=== PATIENT | female | born 1995 | race Asian ===

== ENCOUNTER → 2021-02-28 10:35 | Outpatient (CLI) | payer OTHER, SELFPAY ==
--- NOTE | 2021-02-28 10:37 | DI.US.S_ITS ---
PROCEDURE: US OB <= 14 WEEKS FETUS INDICATIONS: INITIAL VIABILITY DATING OUTSIDE/PRIOR DATING DATA: Last menstrual period (LMP): 12/28/2020 LMP-based estimated date of delivery (CORBY): 10/04/2021. First dating scan (date and location): 03/09/2021. Estimated date of delivery (CORBY) from first dating scan: 10/15/2021. TECHNIQUE: Real-time scanning was performed of the fetus and maternal pelvic organs, with image documentation. Endovaginal scanning was also performed to better visualize the fetus and maternal ovaries. COMPARISON: None. FINDINGS: Embryo: [place]-rump length measures 1.2 cm corresponding to 7 weeks 2 days. Heart rate: Small perigestational sac bleed site measuring up to 1.8 cm Measurement variability in dating: +/- 4 weeks by LMP, +/- 7 days by mean sac diameter (use before 6 weeks gestation if crown-rump length not able to be measured), +/- 5 days by crown-rump length (up to 8 weeks 6 days gestation), +/- 7 days by crown-rump length (up to 13 weeks 6 days gestation). Maternal organs: Ovaries within normal limits, with right corpus luteal cyst. . IMPRESSION: 7 week 2 day single living IUP. Dictated by: Joel Howard [facility] Interpreted: Cindy Gayle MD on 02/28/2021 at 12:06 Transcribed by: CARLOZ on 02/28/2021 at 12:07 Approved by: Cindy Gayle M.D. on 02/28/2021 at 16:12
[2021-02-28 12:33] LABS: Add Manual Diff / Slide Review NO; Basophils Absolute Auto 100 /uL (0-100); Basophils Percent Auto 0.6 % (0-2); Eosinophils Absolute Auto 200 /uL (0-450); Eosinophils Percent Auto 1.3 % (2-4); Hematocrit 40.7 % (36-46); Hemoglobin 13.6 g/dL (12.0-16.0); Lymphocytes Absolute Auto 2400 /uL (1100-4500); Lymphocytes Percent Auto 20.2 % (25-40); Mean Corpuscular HGB Conc 33.3 % (30-36); Mean Corpuscular Hemoglobin 29.9 PG (26-34); Mean Corpuscular Volume 89.7 fL (80-100); Monocytes Absolute Auto 800 /uL (0-900); Monocytes Percent Auto 6.9 % (3-14); Neutrophils Absolute Auto 8300 /uL (1500-7000); Platelet Count 234 X10^3/uL (150-400); Red Blood Cell Count 4.54 X10^6/uL (4.0-5.2); Red Cell Distribution Width 13.5 % (11.6-14.8); White Blood Cell Count 11.7 X10^3/uL (4.5-11.0)
[2021-02-28 12:37] LABS: Appearance Urine UA CLEAR; Bilirubin Urine UA NEGATIVE (NEGATIVE); Color Urine UA YELLOW; Glucose Urine UA NEGATIVE (Negative); Ketones Urine UA NEGATIVE (NEGATIVE); Leukocyte Esterase Urine UA NEGATIVE (NEGATIVE); Nitrite Urine UA NEGATIVE (Negative); Occult Blood Urine UA NEGATIVE (Negative); Protein Urine UA NEGATIVE (Negative); Urobilinogen Urine UA 0.2 E.U./dL (0.2)
[2021-02-28 13:23] LABS: Hepatitis B Surface Antigen NEGATIVE s/c (NEGATIVE); Rubella Antibody IgG 32.9 IU/mL (>15)
[2021-02-28 13:40] LABS: HIV 1 & 2 Ab/Ag 4th Gen Combo NEGATIVE (NEGATIVE); Hep C Virus Ab w/Reflex Quant NEGATIVE s/c (NEGATIVE)
[2021-03-01 07:08] LABS: Varicella IgG Antibody <135 index (Immune >165)
[2021-03-02 06:54] LABS: RPR Screen Non Reactive (Non Reactive)
== END ==
PROVIDERS: Referring Provider Obstetrics & Gynecology; Visit Provider Obstetrics & Gynecology
DX: Z34.01 Encounter for supervision of normal first pregnancy, first trimester (principal); Z3A.01 Less than 8 weeks gestation of pregnancy
CPT/HCPCS: 36415; 76801; 76817; 80055; 81003; 86787; 86803; 86850; 86900; 86901; 87086; 87389

== ENCOUNTER → 2021-05-04 09:02 | Outpatient (CLI) | payer OTHER, SELFPAY ==
[2021-05-10 12:41] LABS: AFP, Serum 30.8 ng/mL (.); Calc Gestational Age EDD (.); Estriol, Free 1.79 ng/mL (.); Inhibin A, Dimeric 155.97 pg/mL (.); Inhibin A, MoM 1.05 (.); Maternal Ethnicity Other (.); Maternal Weight 164 lbs (.); Number of Fetuses No (.); OSBR Risk 1 IN 10000 (.); Results Report (.); Test Results *Screen Negative* (.); hCG, Serum 30702 mIU/mL (.)
== END ==
PROVIDERS: Referring Provider Obstetrics & Gynecology; Visit Provider Obstetrics & Gynecology
DX: Z34.02 Encounter for supervision of normal first pregnancy, second trimester (principal); Z3A.16 16 weeks gestation of pregnancy
CPT/HCPCS: 36415; 82105; 82677; 84702; 86336

== ENCOUNTER → 2021-05-31 09:25 | Outpatient (CLI) | payer OTHER, SELFPAY ==
--- NOTE | 2021-05-31 09:25 | DI.US.S_ITS ---
PROCEDURE: US OB >= 14 WEEKS FETUS INDICATIONS: ANATOMY OUTSIDE/PRIOR DATING DATA: Last menstrual period (LMP): 12/28/2020 LMP-based estimated date of delivery (CORBY): 10/04/2021 First dating scan (date and location): 02/28/2021 Estimated date of delivery (CORBY) from first dating scan: 10/15/2021. TECHNIQUE: Real-time scanning was performed of the fetus, with image documentation and biometric measurements. COMPARISON: [facility], OB <= 14 WEEKS FETUS, 02/28/2021, 11:04. FINDINGS: General: A single living intrauterine gestation is present. Presentation: Breech Placenta: Placental position is anterior, without previa. Amniotic fluid index: 15.8 cm, normal range is 5-24 cm. Single deepest vertical pocket is 4.8 cm. heart rate: 144 beats per minute. Maternal cervical canal: 4.9 cm long. Normal lower limit is 2.5 cm. biometrics: Biparietal diameter: 4.8 cm, 20 weeks, 4 days Head circumference: 18.1 cm, 20 weeks, 4 days Abdominal circumference: 15.1 cm, 20 weeks, 2 days Femur length: 3.4 cm, 20 weeks, 5 days Clinically estimated gestational age: 20 weeks, 3 days Composite gestational age from present scan: 20 weeks, 4 days Estimated weight and percentile: 359 grams, 50 percent. Anatomic survey: Neuro: Ventricles are non-dilated at less than 10 mm. Cisterna magna is normal at 3-11 mm. Cerebellum is normal in size and morphology. Nuchal skin fold: Normal at less than 6 mm between 14-21 weeks gestational age. Face: Nose and lips, facial profile are suboptimally evaluated due to lie. There is questionable cleft upper lip. Spine: Not well seen. Heart: 4-chambered heart is present, with normal ventricular outflow tracts. Diaphragm: Diaphragm is intact. Stomach: Left-sided stomach is present. Kidneys: Not well seen.. Cord: 3-vessel cord has orthotopic insertion. Bladder: Normal in size. Extremities: Left foot is not well seen. Rest of the extremities are within normal limits. IMPRESSION: 1. Single live intrauterine with fetus in breech presentation. heart rate is 144 beats per minute. Normal amount of amniotic fluid. Normal growth. Estimated weight is at 50 percent. 2. facial profile is not well seen. Questionable cleft upper lip is noted, suggest follow-up ultrasound. 3. Left foot, spine and bilateral kidneys are not well seen on this study due to lie. 4. Rest of the anatomic survey is within normal limits. We strive to produce accurate, complete, and clear reports of imaging services. To assist us in improving patient care, this report was composed using standard report templates and voice recognition software. Therefore, it may contain abnormal punctuation, insertions and/or omissions. Occasional wrong-word or sound-alike substitutions may occur. Though we review the report and make efforts to correct it, we do recommend that the report be read carefully in proper context to recognize any text inaccuracies. Dictated by: Mao Watts M.D. on 05/31/2021 at 13:01 Approved by: Mao Watts M.D. on 05/31/2021 at 13:05
== END ==
PROVIDERS: Referring Provider Obstetrics & Gynecology; Visit Provider Obstetrics & Gynecology
DX: Z34.02 Encounter for supervision of normal first pregnancy, second trimester (principal); Z3A.20 20 weeks gestation of pregnancy
CPT/HCPCS: 76811

== ENCOUNTER → 2021-07-26 10:07 | Outpatient (CLI) | payer OTHER, SELFPAY ==
[2021-07-26 14:43] LABS: Hematocrit 37.9 % (36-46); Hemoglobin 12.8 g/dL (12.0-16.0)
[2021-07-26 14:48] LABS: GTT (PREG) 1 Hour PP 50gm Dose 130 mg/dL (76-139)
== END ==
PROVIDERS: Referring Provider Obstetrics & Gynecology; Visit Provider Obstetrics & Gynecology
DX: Z34.02 Encounter for supervision of normal first pregnancy, second trimester (principal); Z3A.24 24 weeks gestation of pregnancy
CPT/HCPCS: 36415; 82950; 85014; 85018

== ENCOUNTER → 2021-09-12 14:02 | Outpatient (CLI) | payer OTHER, SELFPAY ==
[2021-09-13 10:10] LABS: Strep Grp B PCR POS for Grp B Strep
== END ==
PROVIDERS: Visit Provider Obstetrics & Gynecology
DX: Z36.85 Encounter for antenatal screening for Streptococcus B (principal); Z3A.35 35 weeks gestation of pregnancy
CPT/HCPCS: 87653

== ENCOUNTER 2021-10-09 18:03 | Inpatient (IN) | payer OTHER, SELFPAY ==
[2021-10-09 18:44] VITALS: BP 127/79
[2021-10-09 19:18] LABS: Add Manual Diff / Slide Review NO; Basophils Absolute Auto 0 /uL (0-100); Basophils Percent Auto 0.6 % (0-2); Eosinophils Absolute Auto 100 /uL (0-450); Eosinophils Percent Auto 0.9 % (2-4); Hematocrit 37.4 % (36-46); Hemoglobin 13.2 g/dL (12.0-16.0); Lymphocytes Absolute Auto 2100 /uL (1100-4500); Lymphocytes Percent Auto 27.9 % (25-40); Mean Corpuscular HGB Conc 35.3 % (30-36); Mean Corpuscular Hemoglobin 31.4 PG (26-34); Mean Corpuscular Volume 88.9 fL (80-100); Monocytes Absolute Auto 600 /uL (0-900); Monocytes Percent Auto 8.4 % (3-14); Neutrophils Absolute Auto 4700 /uL (1500-7000); Neutrophils Percent Auto 62.2 % (50-75); Platelet Count 207 X10^3/uL (150-400); Red Blood Cell Count 4.21 X10^6/uL (4.0-5.2); Red Cell Distribution Width 13.7 % (11.6-14.8); White Blood Cell Count 7.5 X10^3/uL (4.5-11.0)
[2021-10-09 19:31] LABS: COVID19 -Nasal RAPID Negative (Negative)
[2021-10-09] MEDS: miSOPROStoL 25 MCG TABLET 50 MCG PO (19:55)
[2021-10-10] MEDS: miSOPROStoL 25 MCG TABLET 50 MCG PO (01:27)
[2021-10-10] MEDS: LACTATED RINGERS 1,000 ML 100 ML IV ×2 (06:41→14:57)
[2021-10-10] MEDS: PENICILLIN G POTASSIUM 5,000,000 UNIT in DEXTROSE 5% IN WATER 250 ML 250 UNIT IV (06:42)
[2021-10-10] MEDS: FENT 2MCG/ML BUPIV 0.125% EPI 200 MCG/100 ML PLAST..BAG 10 MCG EPIDURAL ×2 (07:46→14:46)
--- NOTE | 2021-10-10 07:54 | P.HPOB_ITS ---
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 PNC uneventful. GBS + Indications Indication for induction OB: other (Possible cleft lip/palate) History of Present care: good care Dating criteria: LMP confirmed by 1st trimester US Ultrasounds: normal 1st trimester US and normal mid trimester US Obstetrical complications: none Medical complications: none Preadmission Labs Blood type: O (+) positive -: Antibody screen: negative, GBS status: positive, HBsAG: negative, HIV: negative and RPR/VDLR: negative -: Chlamydia screen: not detected and Gonorrhea screen: not detected -: Rubella: immune and Varicella: not immune HCT: 37.4 HCAB: negative PAP: Normal Quad screen: Normal Fasting blood glucose: 130 Prior (ies) History: N/A Evaluation Evaluation Baseline heart rate: 130 Variability: Moderate (11-25) monitor accelerations: Present Monitor Decelerations: Absent Contraction Frequency (minutes): 3 Uterine Contraction Intensity: Moderate Category of Tracing: Reactive Status: Category l Dilation (cm): 4 Effacement (%): 80 Dilation: 3-4 cm Effacement: >/=80% station: -2 Position of cervix: anterior Consistency: medium Trinh score: 9 PFSH Medical History (Updated 10/04/21 @ 10:26 by Parth Soto MD) Frequent nosebleeds (~2009) Surgical History (Updated 03/01/21 @ 10:22 by Crissy Olson RN) History of removal of skin mole [place] teeth extracted (~2011) Family History (Updated 03/01/21 @ 10:27 by Crissy Olson RN) Mother Diabetes mellitus Father No problems noted. Grandmother Diabetes mellitus Hypertension Grandfather Family history unknown Grandmother No problems noted. Grandfather No problems noted. 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.) special isidro needs: No seatbelt use: always do you feel safe at home: Yes Smoking Status: Former smoker quit status: has quit before second hand exposure: No alcohol intake: former substance use type: does not use during the past year weight has: remained stable well-balanced diet: daily or most days daily servings fruits/ve or more times/day caffeine: No Type(s) of exercise: walking, weight lifting, running and normal ROM and activity frequency: 5-6 times per week duration: 45-60 minutes/day Meds Home Medications and Allergies Home Medications Medication Instructions Recorded Confirmed Type cholecalciferol (vitamin D3) 25 25 mcg PO DAILY 03/01/21 10/09/21 History mcg (1,000 unit) capsule doxylamine succinate 25 mg tablet 25 mg PO BEDTIME PRN 03/01/21 10/09/21 History (Unisom (doxylamine)) prenat.vits,alba,bog-gsec-rhgty 1 tab PO DAILY 03/01/21 10/09/21 History pyridoxine (vitamin B6) 50 mg 50 mg PO DAILY 03/01/21 10/09/21 History tablet ondansetron 4 mg disintegrating 4 mg PO Q8H PRN #20 tab 04/06/21 10/09/21 Rx tablet Allergies Allergy/AdvReac Type Severity Reaction Status Date / Time No Known Drug Allergies Allergy Verified 10/04/21 09:52 OB Exam [facility] Head: normal to inspection, normocephalic and atraumatic Eyes General: appearance normal, both eyes and all related structures Resp Effort & Inspection: normal respiratory effort and able to speak in complete sentences Auscultation: clear to auscultation bilaterally Cardio Rate: regular rate Rhythm: regular rhythm Heart Sounds: S1 normal, S2 normal and no murmurs Extremities Lower extremity: Yes normal to inspection GI Inspection: normal to inspection Palpation: Yes soft and Yes no hepatosplenomegaly Uterus Location (Fundal Height): 37 Presentation: vertex Estimated Weight (lbs): 7 Objective Labs Result Diagrams: 10/09/21 18:20 Labs: Laboratory Results - last 24 hr 10/09/21 10/09/2110/09/22 18:20 18:20 18:20 WBC 7.5 RBC 4.21 Hgb 13.2 Hct 37.4 MCV 88.9 MCH 31.4 MCHC 35.3 RDW 13.7 Plt Count 207 Neut % (Auto) 62.2 Lymph % (Auto) 27.9 [place] % (Auto) 8.4 Eos % (Auto) 0.9 L Baso % (Auto) 0.6 Neut # (Auto) 4700 Lymph # (Auto) 2100 [place] # (Auto) 600 Eos # (Auto) 100 Baso # (Auto) 0 SARS-CoV-2 (PCR) Negative Blood Type O Positive Antibody Screen Negative Assessment and Plan Assessment and Plan Assessment and Plan narrative: ASSESSMENT 1. Intrauterine , 39+2 weeks EGA, vertex 2. Possible cleft lip/palate 3. GBS positive status PLAN 1. Admit for ripening/induction 2. GBS prophylaxis 3. See orders Time Spent with Patient Total time spent with greater than 50% in coordination of care (as documented) at patient's floor/unit and/or counseling patient:: less than 15 minutes
[2021-10-10] MEDS: ACETAMINOPHEN 325 MG TABLET 975 MG PO (09:00)
[2021-10-10] MEDS: OXYTOCIN PREMIX 30 UNIT/500 ML PLAST..BAG IV (10:01)
[2021-10-10] MEDS: PENICILLIN G POTASSIUM 3,000,000 UNIT/50 ML FROZ.PIGGY 100 UNIT IV ×2 (11:42→15:28)
--- NOTE | 2021-10-10 17:34 | PM.OBPRVD ---
Events: Other (Suspected cleft lip/palate) Labor & Delivery Delivery date: 10/10/21 Cervical ripening method: per misoprostal protocol Induction method: per pitocin protocol Delivery monitor: external FHT and external uterine Route of delivery: vacuum extraction Indication for instrumentation: nonreassuring FHR tracing ( tachycardia) L&D Laceration Description: Perineal - 2nd Degree and Vaginal - 1st Degree (Right sided) Delivery repair: chromic Estimated blood loss (mL): 300 Quantitative Blood Loss: 300 Complications: With judicious use of Pitocin augmentation, the patient progressed to the 2nd stage of labor and pushed well. The patient and the baby developed tachycardia simultaneously with heart rate persistently in the 180-190 range. Due to persistent tachycardia decision was made to expedite delivery with vacuum extraction and therefore a Kiwi Omni-cup was applied to the vertex at +2 station in the right occiput posterior position. The vertex was brought to the perineum with 4 pulls with no pop offs, release of suction between pulls and pressures never exceeding 550 mmHg. The infant then delivered spontaneously over an intact perineum in the right occiput posterior position and no difficulty delivering the shoulders was encountered. Skin to skin contact was initiated immediately and the was vigorous. After 90 seconds, the cord was clamped and cut with the cord noted to to have 3 vessels and no entanglement with the . Placenta was easily delivered with gentle cord traction and Pitocin initiated intravenously. The placenta was inspected and found to be intact. Cord blood was obtained in routine not want studies. The perineum was then inspected and found to have sustained a second degree midline laceration with a superficial right labial laceration. The lacerations were closed with 2-0 chromic in the usual manner and at the end of the repair all skin edges were well reapproximated. The procedure was then terminated with the infant and mother doing well. QBL 300 cc. Complications experienced none. Baby 1: gender: Female Presentation: vertex Position: Right Occiput Posterior Placenta delivery description: Spontaneous Cord Vessel Description: 3 Vessels score (1 min): 8 score (5 min): 9 weight: 6 lb 12.115 oz Plan for aftercare: Routine care
[2021-10-10] MEDS: DERMOPLAST SPRAY 20% 60 ML 1 SPRAY TOP (22:05)
[2021-10-10] MEDS: ACETAMINOPHEN 325 MG TABLET 650 MG PO (22:06)
[2021-10-10] MEDS: IBUPROFEN 600 MG TABLET PO (22:06)
[2021-10-11] MEDS: ACETAMINOPHEN 325 MG TABLET 650 MG PO ×3 (04:45→23:40)
[2021-10-11] MEDS: IBUPROFEN 600 MG TABLET PO ×3 (04:45→23:40)
[2021-10-11 06:11] LABS: Add Manual Diff / Slide Review NO; Basophils Absolute Auto 0 /uL (0-100); Basophils Percent Auto 0.2 % (0-2); Eosinophils Absolute Auto 100 /uL (0-450); Eosinophils Percent Auto 0.4 % (2-4); Hematocrit 33.7 % (36-46); Hemoglobin 11.3 g/dL (12.0-16.0); Lymphocytes Absolute Auto 2400 /uL (1100-4500); Lymphocytes Percent Auto 18.6 % (25-40); Mean Corpuscular HGB Conc 33.5 % (30-36); Mean Corpuscular Hemoglobin 30.3 PG (26-34); Mean Corpuscular Volume 90.4 fL (80-100); Monocytes Absolute Auto 700 /uL (0-900); Monocytes Percent Auto 5.4 % (3-14); Neutrophils Absolute Auto 9700 /uL (1500-7000); Neutrophils Percent Auto 75.4 % (50-75); Platelet Count 165 X10^3/uL (150-400); Red Blood Cell Count 3.72 X10^6/uL (4.0-5.2); Red Cell Distribution Width 13.9 % (11.6-14.8); White Blood Cell Count 12.9 X10^3/uL (4.5-11.0)
[2021-10-11] MEDS: DOCUSATE 100 MG CAPSULE PO (10:49)
[2021-10-11 10:50] VITALS: TEMP 36.4
--- NOTE | 2021-10-11 13:06 | PM.OBDS.1 ---
Discharge Providers Provider Date of admission: 10/09/21 18:03 Discharge Date: 10/11/21 Primary care physician: Doctor Lilia MD Consults: 10/09/21 19:06 Consult to Anesthesiology Urgent Comment: Consulting Provider: Parth Soto Reason for consultation: Placement of BRANDIN in labor 10/11/21 17:32 Consult to Computer Help Desk Representative Routine Comment: Discharge provider: Parth Soto MD Summary Hospital Course Date Patient Seen: 10/11/21 Time Patient Seen: 13:06 Diagnoses: Intrauterine , 39+2 weeks EGA, delivered GBS positive status Hospital Course: Gin was admitted for cervical ripening on the evening of 10/09/2021 at 39+ 1 weeks due to suspected cleft lip/palate seen on 20 week anatomy scan at a time when 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 She underwent cervical ripening with oral Cytotec and on the morning of 10/10/2021 Pitocin augmentation was initiated along with IV penicillin for GBS prophylaxis, and she progressed well through labor with an epidural in place. On the afternoon of 10/10/2021 she delivered vaginally a viable female requiring vacuum assist for descent to the perineum due to persistent tachycardia, and during that delivery sustained a second-degree perineal laceration and first-degree right labial laceration which were repaired in the usual manner. Following delivery the patient has done extremely well with prompt return of bowel and bladder function, she is ambulating independently, is tolerating regular diet, and her pain is well controlled with oral medications. She will be discharged at this time to home after being counseled regarding precautionary symptoms, limitations activity, medications, and plans for follow-up which will be in 6 weeks. Medications at discharge will include ibuprofen 600 mg p.o. q.6 hours as needed pain, and [id number]-[id number]-iuxhrso stool softener b.i.d. as needed constipation. Peripartum Data Infant Delivery Method: Natural Vaginal Laceration Description: Perineal - 2nd Degree and Labial (1st degree, right) Episiotomy description: None Procedures: Vaginal OB Delivery, vacuum assited Continuous lumbar epidural complications: none [place] 1: Gender: Female Disposition of : home Status at Discharge Cognitive/behavioral status at discharge: oriented Functional status at discharge: independent ambulation Overall status at discharge: patient is progressing back to baseline Time Spent with Patient Time attestation: Total time spent providing and/or coordinating discharge services: Time spent: Less than 30 minutes Objective Labs Result Diagrams: 10/11/21 05:35 Labs: Laboratory Results - last 24 hr 10/11/21 05:35 WBC 12.9 H D RBC 3.72 L Hgb 11.3 L Hct 33.7 L MCV 90.4 MCH 30.3 MCHC 33.5 RDW 13.9 Plt Count 165 Neut % (Auto) 75.4 H Lymph % (Auto) 18.6 L [place] % (Auto) 5.4 Eos % (Auto) 0.4 L Baso % (Auto) 0.2 Neut # (Auto) 9700 H Lymph # (Auto) 2400 [place] # (Auto) 700 Eos # (Auto) 100 Baso # (Auto) 0 Exam Vital Signs (past 8 hours): - 10/11/21 10:50 Temperature 97.6 F Const General: cooperative and comfortable Nutritional Appearance: average body habitus Orientation: alert and oriented x3 HENMT Head: normal to inspection, atraumatic and abrasion Ears: hearing grossly normal bilaterally Face and sinus: face symmetric Eyes General: appearance normal, both eyes and all related structures Conjunctivae: conjunctivae normal Sclera: sclerae normal EOM: EOM intact bilaterally Neck Neck: normal visual inspection Resp Effort & Inspection: normal respiratory effort and able to speak in complete sentences Auscultation: clear to auscultation bilaterally Cardio Rate: regular rate Rhythm: regular rhythm Heart Sounds: S1 normal, S2 normal and no murmurs GI Inspection: normal to inspection Palpation: soft, no hepatosplenomegaly, mass (Firm, NT fundus, U-6) and tender (Mild, diffuse ) External Female Exam: laceration (Intact with early healing) and other (Minimal lochia) Extrem General: no calf tenderness Psych Appearance: grossly normal Mental Status: mental status grossly normal Speech and Movement: speech and movement normal Mood: congruent mood Affect: normal affect Attitude: cooperative Thought Process: normal Thought Content: normal Judgment: judgment good Discharge Plan Discharge Plan Patient Disposition: Home Provider Discharge Comment: Please review the written instructions you received when you were discharged from the hospital. Your follow-up appointment will be scheduled for 6 weeks after your delivery and I look forward to seeing you then. If in the meanwhile however you have any problems, issues, or concerns, please contact me either through the office phone number or via the patient portal. Nursing Discharge Comment: Discharge teaching done overnight on pi/senior research associate 10/11-10/12. Packet printed and additional discharge teaching done at 1010. Pt denies any additional questions. Official discharge time was 0100 per pi/senior research associate. Discharge orders & Medications Prescriptions: New ibuprofen 600 mg Tablet 600 mg PO Q6HR PRN (Reason: Fever/Mild Pain (1-3)) Qty: 60 2RF Continued prenat.vits,alba,lvv-ojgc-czvms Tablet 1 tab PO DAILY 0RF cholecalciferol (vitamin D3) 25 mcg (1,000 unit) capsule 25 mcg PO DAILY 0RF pyridoxine (vitamin B6) 50 mg tablet 50 mg PO DAILY 0RF Unisom (doxylamine) 25 mg tablet 25 mg PO BEDTIME PRN (Reason: Sleep) 0RF ondansetron 4 mg tablet,disintegrating 4 mg PO Q8H PRN (Reason: nausea and vomiting) Qty: 20 6RF Medication counseling provided by Pharmacist: No Follow up/Referrals: Doctor Rodrigues MD [Primary Care Provider] - 6 Weeks (Please follow up with Dr. Soto on November 23 @ 9:15am. ) Discharge Health Status Multidrug resistant organism: No MDRO Diet/Activity/Treatments Diet: Diet as Tolerated Activity: As tolerated Other treatments: Tylenol may be used for pain in addition to the Ibuprofen you've been prescribed. Over the counter stool softeners as needed for constipation. Skin/Wound/Dressing Care Report to your healthcare provider any signs of infection, such as:: chills, fever, increased pain, unusual drainage and unusual redness Dressing: N.A Visit Report/Discharge Packet Instructions: DI for Labor and Delivery, Vaginal , DI for and Nipple Soreness Stand Alone Forms: Discharge: Care Discharge Data Primary Care Provider: Doctor Lilia
[2021-10-11] MEDS: LANOLIN OINT 7 GM 1 APPLIC TOP (23:40)
== END 2021-10-12 01:00 | disposition home or self-care (01) | DRG 807 ==
PROVIDERS: Admitting Provider Obstetrics & Gynecology; Referring Provider Obstetrics & Gynecology; Visit Provider Obstetrics & Gynecology
DX: O99.824 Streptococcus B carrier state complicating childbirth (principal); Z37.0 Single live birth; Z3A.39 39 weeks gestation of pregnancy; O76 Abnormality in fetal heart rate and rhythm complicating labor and delivery; O99.891 Other specified diseases and conditions complicating pregnancy; Z20.822 Contact with and (suspected) exposure to COVID-19
CPT/HCPCS: 01967; 36415; 59050; 59200; 59400; 85025; 86850; 86900; 86901; 87635; C9803; G0379; J2540; J2590